=== PATIENT | female | born 1950 | race Caucasian/White ===

== ENCOUNTER 2016-12-24 14:21 | Emergency (ER) | payer OTHER, BC ==
[~2016-12-24] VITALS: Ht 162.6 cm; Wt 50.4 kg
[~2016-12-24 14:21] MED LIST: ACYCLOVIR400 MG PO; BACTROBAN NASAL1 G1 BOTH NARES; CENTRUM SILVER1 EAC3 PO; Colace PO; FLONASE16 G1 BOTH NARES; Flonase BOTH NARES; MYCELEX10 MG PO; Milk Of Magnesia,MOM PO; Motrin PO; ONDANSETRON HCL4 MG PO; PEPCID20 MG PO; PRILOSEC40 MG PO; PROzac PO; TYLENOL EXTRA500 MG PO; Theragran PO; Ultram PO; VESICARE5 MG PO; ZOLPIDEM TARTRA10 MG PO; Zocor PO; Zovirax PO
[2016-12-24 15:18] LABS: HEMATOCRIT 41.6 % (36.0-46.0); MCH 31.7 PG (29.0-34.0); MCHC 33.2 G/DL (30.0-36.0); MCV 95.6 FL (83-99); MEAN PLAT.VOLUME 9.7 uM^3 (9.5-12.4); PLATELET COUNT 288 K/uL (156-360); RBC DIS.WIDTH-CV 11.8 % (11.8-14.6); RBC DIS.WIDTH-SD 41.1 % (39-53); RED BLOOD COUNT 4.35 M/uL (3.80-5.20); WHITE BLOOD COUNT 9.6 K/uL (4.1-10.2)
[2016-12-24 15:28] LABS: CHLORIDE 101 mEq/L (99-109); POTASSIUM 3.5 mEq/L (3.7-5.4); SODIUM 138 mEq/L (136-147)
[2016-12-24 15:30] LABS: GLUCOSE 101 mg/dL (70-99)
[2016-12-24 15:31] LABS: ANION GAP 10 MEQ/L (2-14)
[2016-12-24 15:32] LABS: TOTAL BILIRUBIN 0.6 mg/dL (0.0-1.0)
[2016-12-24 15:34] LABS: ALKALINE PHOSPHATASE 88 IU/L (3-129); GFR ESTIMATE (CALCULATED) > 59 mL/min/
[2016-12-24 15:35] LABS: UREA NITROGEN (BUN) 19 mg/dL (9-23)
[2016-12-24 15:37] LABS: LIPASE 30 U/L (1.0-51.0)
[2016-12-24 19:00] LABS: ADD MIUA? YES; BILIRUBIN NEGATIVE; BLOOD NEGATIVE; COLOR YELLOW ((YELLOW)); GLUCOSE (STRIP) NEGATIVE; KETONES NEGATIVE; LEUKOCYTES TRACE; NITRITE NEGATIVE; PROTEIN (STRIP) NEGATIVE; SPECIFIC GRAVITY 1.009 (1.000-1.030); UROBILINOGEN 0.2 MG/DL (0.2-1.0)
[2016-12-24 19:06] LABS: BACTERIA NONE SEEN /HPF; EPITHELIAL CELLS NONE SEEN /HPF; MUCUS NONE SEEN /LPF; RED BLOOD CELLS 0-5 /HPF (0-5); WHITE BLOOD CELLS 0-5 /HPF (0-5)
[2016-12-24] MEDS ORDERED: ZOFRAN4 MG PO (19:07)
[2016-12-24 20:01] VITALS: BP 139/77
== END 2016-12-24 20:17 | disposition home or self-care (01) ==
LOC: EME 14:21
PROVIDERS: Nurse Practitioner Family
DX: K86.89 Other specified diseases of pancreas (principal); R10.9 Unspecified abdominal pain; K21.9 Gastro-esophageal reflux disease without esophagitis; F32.9 Major depressive disorder, single episode, unspecified; Z90.710 Acquired absence of both cervix and uterus; Z88.8 Allergy status to other drugs, medicaments and biological substances
CPT/HCPCS: 74176; 80053; 81003; 83690; 85027; 99281; 99285; J2270; J2405; J7030

== ENCOUNTER 2016-12-26 10:43 | Emergency (ER) | payer OTHER, BC ==
[~2016-12-26] VITALS: Ht 162.6 cm; Wt 51.1 kg
[~2016-12-26 10:43] MED LIST changes: +ZOFRAN4 MG PO
[2016-12-26 11:41] LABS: HEMATOCRIT 36.2 % (36.0-46.0); MCH 31.7 PG (29.0-34.0); MCHC 33.4 G/DL (30.0-36.0); MCV 94.8 FL (83-99); MEAN PLAT.VOLUME 9.5 uM^3 (9.5-12.4); PLATELET COUNT 241 K/uL (156-360); RBC DIS.WIDTH-CV 11.8 % (11.8-14.6); RBC DIS.WIDTH-SD 40.3 % (39-53); RED BLOOD COUNT 3.82 M/uL (3.80-5.20); WHITE BLOOD COUNT 5.8 K/uL (4.1-10.2)
[2016-12-26 11:50] LABS: CHLORIDE 106 mEq/L (99-109); POTASSIUM 3.9 mEq/L (3.7-5.4); SODIUM 140 mEq/L (136-147)
[2016-12-26 11:52] LABS: GLUCOSE 121 mg/dL (70-99)
[2016-12-26 11:53] LABS: ANION GAP 9 MEQ/L (2-14)
[2016-12-26 11:56] LABS: ALKALINE PHOSPHATASE 72 IU/L (3-129); GFR ESTIMATE (CALCULATED) > 59 mL/min/; TOTAL BILIRUBIN 0.4 mg/dL (0.0-1.0)
[2016-12-26 11:58] LABS: UREA NITROGEN (BUN) 14 mg/dL (9-23)
[2016-12-26 13:44] LABS: ADD MIUA? YES; BILIRUBIN NEGATIVE; BLOOD NEGATIVE; COLOR YELLOW ((YELLOW)); GLUCOSE (STRIP) NEGATIVE; KETONES NEGATIVE; LEUKOCYTES SMALL; NITRITE NEGATIVE; PROTEIN (STRIP) NEGATIVE; UROBILINOGEN 0.2 MG/DL (0.2-1.0)
[2016-12-26 13:55] LABS: BACTERIA NONE SEEN /HPF; EPITHELIAL CELLS RARE /HPF; MUCUS TRACE /LPF; RED BLOOD CELLS 0-5 /HPF (0-5); UCUL ADDED? NO; WHITE BLOOD CELLS 0-5 /HPF (0-5)
[2016-12-26 16:35] VITALS: BP 115/87
== END 2016-12-26 16:36 | disposition home or self-care (01) ==
LOC: EME 10:43
PROVIDERS: Emergency Medicine
DX: K59.00 Constipation, unspecified (principal); K21.9 Gastro-esophageal reflux disease without esophagitis; F32.9 Major depressive disorder, single episode, unspecified
CPT/HCPCS: 74000; 80053; 81003; 83605; 85027; 93005; J2270; J2765; J7030

== ENCOUNTER 2017-02-22 20:53 | Inpatient (IN) | payer OTHER, BC ==
[~2017-02-22] VITALS: Ht 162.6 cm; Wt 54.7 kg
[~2017-02-22 20:53] MED LIST changes: +ADVAIR 100/501 DISK IH; +CALCITRATE + D1 EACH PO; +CYMBALTA60 MG PO; +JOINT SUPPORT1 EACH PO; +LORCET 5-325 M1 EACH PO; +MOBIC15 MG PO; +OMEPRAZOLE40 M1 PO; -PRILOSEC40 MG PO; +SOMA250 MG PO; +ZOCOR80 MG PO
[2017-02-23 10:11] VITALS: BP 149/68
[2017-02-23 23:22] VITALS: BP 145/83
[2017-02-24 04:45] VITALS: BP 101/62
[2017-02-24 07:25] VITALS: BP 108/56
[2017-02-24 11:30] VITALS: BP 105/54
[2017-02-24 15:36] VITALS: BP 126/61
[2017-02-24 23:39] VITALS: BP 132/65
[2017-02-25 07:48] VITALS: BP 132/62
[2017-02-25 15:06] VITALS: BP 138/63
[2017-02-25 23:12] VITALS: BP 139/73
[2017-02-26 10:08] VITALS: BP 103/67
== END 2017-02-26 14:09 | disposition home or self-care (01) | DRG 460 ==
LOC: ENRESERV 20:53 → 2SOUTH 02-23 09:28 → ENRESERV 02-23 15:37 → 3EAST 02-23 19:11
PROC: 0SG00AJ Fusion of Lumbar Vertebral Joint with Interbody Fusion Device, Posterior Approach, Anterior Column, Open Approach (ICD-10-PCS; principal; 2017-02-23)
DX: M99.03 Segmental and somatic dysfunction of lumbar region (principal); K86.3 Pseudocyst of pancreas; K59.00 Constipation, unspecified; M53.86 Other specified dorsopathies, lumbar region; G89.29 Other chronic pain; K21.9 Gastro-esophageal reflux disease without esophagitis; M12.88 Other specific arthropathies, not elsewhere classified, other specified site; M51.16 Intervertebral disc disorders with radiculopathy, lumbar region; M81.0 Age-related osteoporosis without current pathological fracture; F43.23 Adjustment disorder with mixed anxiety and depressed mood; E78.2 Mixed hyperlipidemia; Z88.5 Allergy status to narcotic agent; Z98.1 Arthrodesis status; Z90.710 Acquired absence of both cervix and uterus; Z86.010 Personal history of colon polyps; Z79.51 Long term (current) use of inhaled steroids
CPT/HCPCS: 72100; 76000; 86850; 86900; 86901; C1713; J0690; J1170; J1885; J2250; J2270; J2300; J2405; J2930; J3010; J3480; J8540; Q0175; S0020

== ENCOUNTER → 2017-09-16 | Outpatient (CLI) | payer OTHER, BC | END | disposition home or self-care (01) | LOC: NUC 08:19 | DX: R11.0 Nausea (principal); K86.2 Cyst of pancreas; Z86.010 Personal history of colon polyps | CPT/HCPCS: 78264; A9541 ==